=== PATIENT | female | born 1995 | race Caucasian/White ===

== ENCOUNTER 2016-06-26 11:58 | Emergency (ER) | payer MEDICAID ==
[2016-06-26] MEDS ORDERED: NS 0.9% 1000 ML* 2,000 ML IV ONE (12:34)
[2016-06-26] MEDS ORDERED: Ondansetron INJ* 2 MG/ML VIAL IV ONE (12:34)
[2016-06-26] MEDS ORDERED: Ketorolac INJ* 30 MG/ML 1 ML VIAL IV PUSH ONE (12:47)
[2016-06-26 13:11] LABS: Urine Bacteria Absent (Absent); Urine Bilirubin Negative (Negative); Urine Glucose Negative (Negative); Urine Nitrite Negative (Negative)
[2016-06-26 13:13] LABS: Hematocrit 42 % (35-47); Hemoglobin 13.7 g/dl (12.0-16.0); Mean Corpuscular HGB Conc 33 g/dl (31-36); Mean Corpuscular Hemoglobin 27 pg (27-31); Mean Corpuscular Volume 81 fL (80-97); Mean Platelet Volume 8 um3 (7.4-10.4); Red Blood Count 5.15 10^6/ul (4.0-5.4); Red Cell Distribution Width 14 % (10.5-15); White Blood Count 22.7 10^3/ul (3.5-10.8)
[2016-06-26 13:14] LABS: Add Diff/Slide Review? Slide Review Added; Comments Flag Yes
[2016-06-26 13:29] LABS: ALT 16 U/L (7-52); AST 15 U/L (13-39); Albumin 3.8 g/dL (3.2-5.2); Alkaline Phosphatase 75 U/L (34-104); Anion Gap 10 mmol/L (2-11); BUN/Creatinine Ratio 7.7 (8-20); Blood Urea Nitrogen 8 mg/dL (6-24); CO2 Carbon Dioxide 23 mmol/L (22-32); Calcium 9.3 mg/dL (8.6-10.3); Chloride 100 mmol/L (101-111); EGFR Non-African American 66.9 (>60); Globulin 4.2 g/dL (2-4); Glucose 127 mg/dL (70-100); Lipase < 10 U/L (11.0-82.0); Potassium 3.6 mmol/L (3.5-5.0); Sodium 133 mmol/L (133-145)
--- NOTE | 2016-06-26 14:15 | RAD ---
CLINICAL HISTORY: Right flank pain COMPARISON: None TECHNIQUE: Multiple contiguous axial CT scans were obtained of the abdomen and pelvis, without intravenous contrast enhancement. Coronal and sagittal multiplanar reformations are submitted for review. Oral contrast was not administered. FINDINGS: The study is limited by the lack of intravenous contrast. This limits evaluation of the solid organs and vasculature. LUNG BASES: The lung bases are clear. LIVER: The liver is diffusely low in attenuation compared to the spleen. There are no focal hepatic parenchymal masses. BILE DUCTS: There is no intrahepatic or extrahepatic biliary dilatation. GALLBLADDER: The gallbladder is normal, without pericholecystic inflammatory change. PANCREAS: The pancreas is normal, without mass or ductal dilatation. SPLEEN: Normal in size and appearance. UPPER GI TRACT: Evaluation of the gastrointestinal tract is limited by incomplete gastric distention. The upper GI tract is unremarkable. SMALL BOWEL AND MESENTERY: The small bowel is normal in contour, course, and caliber. There is no obstruction or dilatation. COLON: The colon is normal in contour, course, caliber. There is no pericolonic inflammatory change. There is a tubular, vermiform, hollow viscus that is blind ending, and originates from the cecum, consistent with a normal appendix. There is no periappendiceal inflammatory change. This is best seen on images 103 through 117 ADRENALS: Normal bilaterally. KIDNEYS: There is an ill-defined, 1 cm, slightly high attenuation lesion of the midpole of the right kidney measuring 21 Hounsfield units in attenuation. There is mild stranding of the perinephric fat on the right. There is no appreciable hydronephrosis or nephrolithiasis. BLADDER: The bladder is smooth in contour. PELVIC ORGANS: The uterus and adnexa are grossly normal for technique. AORTA: The aorta is normal. IVC: Unremarkable LYMPH NODES: There is no lymphadenopathy by size criteria. ABDOMINAL WALL: There is no evidence for abdominal wall hernia. BONES AND SOFT TISSUES: The bones and soft tissues are unremarkable. OTHER: None IMPRESSION: 1. THERE IS NO HYDRONEPHROSIS OR NEPHROLITHIASIS. 2. THERE IS MILD STRANDING OF THE PERINEPHRIC FAT ON THE RIGHT.. 3. THERE IS AN ILL-DEFINED HIGH ATTENUATION LESION OF THE MIDPOLE OF THE RIGHT KIDNEY WHICH MAY REPRESENT A COMPLEX CYST VERSUS SOLID PARENCHYMAL LESION. RECOMMEND FURTHER EVALUATION WITH CONTRAST-ENHANCED CT OR CONTRAST-ENHANCED MRI OF THE ABDOMEN IN THE NONACUTE SETTING
[2016-06-26] MEDS ORDERED: Ciprofloxacin 400MG IVPREMIX(* 400 MG/200 ML BAG IVPB ONE (14:26)
--- NOTE | 2016-06-26 14:30 | ED ---
GI/ HPI - HPI Summary HPI Summary: 20F presents with left side flank pain for 2 days. She states she was having dysuria on Friday. She admits to urinary frequency. She admits to n/v on Friday that has resolved. Ibuprofen has been managing pain. Denies any diarrhea or constipation. never had this pain before. no fevers. denies any vaginal discharge or hematuria. denies any abdominal pain. - History of Current Complaint Chief Complaint: EDAbdPain Time Seen by Provider: 06/26/16 12:33 Stated Complaint: ABDOMINAL PAIN Pain Intensity: 3 - Allergy/Home Medications Allergies/Adverse Reactions: Allergies Allergy/AdvReac Type Severity Reaction Status Date / Time No Known Allergies Allergy Verified 06/26/16 12:57 Home Medications: Home Medications Norelgestromin-Ethinyl Estradi [Xulane 150-35 Mcg/24Hr] 1 patch TOPICAL Q7D 03/02 [History Confirmed 06/26/16] PMH/Surg Hx/FS Hx/Imm Hx Endocrine/Hematology History: Denies: Hx Anticoagulant Therapy Respiratory History: Denies: Hx Asthma Infectious Disease History: No Infectious Disease History: Denies: Traveled Outside the [place] in Last 30 Days - Family History Known Family History: Negative: Cardiac Disease - Social History Alcohol Use: Occasionally Substance Use Type: Reports: None Smoking Status (MU): Light Every Day Tobacco Smoker Review of Systems Negative: Fever Negative: Chest Pain Negative: Shortness Of Breath Positive: Vomiting - resolved, Nausea - resolved. Negative: Abdominal Pain, Diarrhea Positive: burning, dysuria, flank pain All Other Systems Reviewed And Are Negative: Yes Physical Exam Triage Information Reviewed: Yes Vital Signs On Initial Exam: Initial Vitals Temp Pulse Resp BP Pulse Ox 98.8 F 120 18 141/73 100 06/26/16 12:01 06/26/16 12:01 06/26/16 12:01 06/26/16 12:01 06/26/16 12:01 Vital Signs Reviewed: Yes Appearance: Positive: Well-Appearing Skin: Positive: Warm, Dry Head/Face: Positive: Normal Head/Face Inspection Eyes: Positive: Normal, Conjunctiva Clear Respiratory/Lung Sounds: Positive: Clear to Auscultation, Breath Sounds Present Cardiovascular: Positive: Normal, RRR Abdomen Description: Positive: Nontender, Soft, CVA Tenderness (R) Bowel Sounds: Positive: Present - [place] Coma Scale Coma Scale Total: 15 Diagnostics - Vital Signs Vital Signs Temp Pulse Resp BP Pulse Ox 06/26/16 14:00 109 99 06/26/16 13:00 126 96 06/26/16 12:44 130 99 06/26/16 12:42 154/68 06/26/16 12:01 98.8 F 120 18 141/73 100 - Laboratory Lab Results: Lab Results 06/26/16 06/26/16 06/26/16 Range/Units 12:30 12:57 12:57 WBC 22.7 H (3.5-10.8) 10^3/ul RBC 5.15 (4.0-5.4) 10^6/ul Hgb 13.7 (12.0-16.0) g/dl Hct 42 (35-47) % MCV 81 (80-97) fL MCH 27 (27-31) pg MCHC 33 (31-36) g/dl RDW 14 (10.5-15) % Plt Count 372 (150-450) 10^3/ul MPV 8 (7.4-10.4) um3 Neut % (Auto) 87.7 H (38-83) % Lymph % (Auto) 5.8 L (25-47) % [place] % (Auto) 6.2 (1-9) % Eos % (Auto) 0.1 (0-6) % Baso % (Auto) 0.2 (0-2) % Absolute Neuts (auto) 19.9 H (1.5-7.7) 10^3/ul Absolute Lymphs (auto) 1.3 (1.0-4.8) 10^3/ul Absolute Monos (auto) 1.4 H (0-0.8) 10^3/ul Absolute Eos (auto) 0 (0-0.6) 10^3/ul Absolute Basos (auto) 0 (0-0.2) 10^3/ul Absolute Nucleated RBC 0 10^3/ul Nucleated RBC % 0 Sodium 133 (133-145) mmol/L Potassium 3.6 (3.5-5.0) mmol/L Chloride 100 L (101-111) mmol/L Carbon Dioxide 23 (22-32) mmol/L Anion Gap 10 (2-11) mmol/L BUN 8 (6-24) mg/dL Creatinine 1.04 H (0.51-0.95) mg/dL Est GFR ( Amer) 86.0 (>60) Est GFR (Non-Af Amer) 66.9 (>60) BUN/Creatinine Ratio 7.7 L (8-20) Glucose 127 H (70-100) mg/dL Calcium 9.3 (8.6-10.3) mg/dL Total Bilirubin 0.50 (0.2-1.0) mg/dL AST 15 (13-39) U/L ALT 16 (7-52) U/L Alkaline Phosphatase 75 (34-104) U/L C-React Prot High Sens 88.28 mg/L Total Protein 8.0 (6.4-8.9) g/dL Albumin 3.8 (3.2-5.2) g/dL Globulin 4.2 H (2-4) g/dL Albumin/Globulin Ratio 0.9 L (1-3) Lipase < 10 L (11.0-82.0) U/L Urine Color Yellow Urine Appearance Cloudy Urine pH 6.0 (5-9) Ur Specific [place] 1.013 (1.010-1.030) Urine Protein 1+(30 mg/dl) H (Negative) Urine Ketones Negative (Negative) Urine Blood 2+ H (Negative) Urine Nitrate Negative (Negative) Urine Bilirubin Negative (Negative) Urine Urobilinogen Negative (Negative) Ur Leukocyte Esterase 3+ H (Negative) Urine WBC (Auto) 3+(>20/hpf) H (Absent) Urine RBC (Auto) 1+(3-5/hpf) H (Absent) Ur Squamous Epith Cells Present H (Absent) Urine Bacteria Absent (Absent) Urine Glucose Negative (Negative) Result Diagrams: 06/26/16 12:57 06/26/16 12:57 Lab Statement: Any lab studies that have been ordered have been reviewed, and results considered in the medical decision making process. - CT ab CT Interpretation: Positive (See Comments) - IMPRESSION: 1. THERE IS NO HYDRONEPHROSIS OR NEPHROLITHIASIS. 2. THERE IS MILD STRANDING OF THE PERINEPHRIC FAT ON THE RIGHT.. 3. THERE IS AN ILL-DEFINED HIGH ATTENUATION LESION OF THE MIDPOLE OF THE RIGHT KIDNEY WHICH MAY REPRESENT A COMPLEX CYST VERSUS SOLID PARENCHYMAL LESION. RECOMMEND FURTHER EVALUATION WITH CONTRAST- ENHANCED CT OR CONTRAST-ENHANCED MRI OF THE ABDOMEN IN THE NONACUTE SETTING CT Interpretation Completed By: Radiologist JACQUI Course/Dx - Course Course Of Treatment: 20F presents with dysuria, frequency and right sided flank pain for 2 days. denies any fever. had n/v resolved. on exam abdomen nontender and pos CVA right side. CT no stone, positive fat stranding, and lesion needs follow up outpt, normal appendix urine shows UTI, WBC 22. will treat as pyelo, first dose cipro given IV and will continue outpt. patient understands and agrees with plan - Diagnoses Differential Diagnoses - Female: Pyelonephritis, Urinary Tract Infection, Ureteral Calculi Provider Diagnoses: Pyelonephritis Discharge - Discharge Plan Condition: Stable Disposition: HOME Prescriptions: Ciprofloxacin TAB* [Cipro 500 MG TAB*] 500 mg PO BID #13 tab Ondansetron ODT TAB* [Zofran 4 MG Odt TAB*] 4 mg PO Q6H PRN #5 tab.odt PRN Reason: Nausea Patient Education Materials: Acute Pyelonephritis (ED) Referrals: No Primary Care Phys,NOPCP [Primary Care Provider] - Additional Instructions: Take antibiotic twice a day for 14 days, first dose given in ED Take zofran every 6 hours as need for nausea Drink plenty of water Take Tylenol or ibuprofen every 6 hours as needed for pain Establish care with primary care physician Return to ED if develop fever, severe vomiting, or any new or worsening symptoms
--- NOTE | 2016-06-28 06:39 | ED ---
Progress - Progress Note Progress Note: Pt's urine cx reveals e. coli UTI - pt d/c'd on cipro - awaiting sens - no change at this time. AAlvaro PA-C Course/Dx - Course Course Of Treatment: 20F presents with dysuria, frequency and right sided flank pain for 2 days. denies any fever. had n/v resolved. on exam abdomen nontender and pos CVA right side. CT no stone, positive fat stranding, and lesion needs follow up outpt, normal appendix urine shows UTI, WBC 22. will treat as pyelo, first dose cipro given IV and will continue outpt. patient understands and agrees with plan - Diagnoses Provider Diagnoses: Pyelonephritis
== END 2016-06-26 15:39 | disposition home or self-care (01) ==
LOC: ED 11:58
DX: N12 Tubulo-interstitial nephritis, not specified as acute or chronic (principal); B96.20 Unspecified Escherichia coli [E. coli] as the cause of diseases classified elsewhere; F17.200 Nicotine dependence, unspecified, uncomplicated
CPT/HCPCS: 36415; 74176; 80053; 81003; 81015; 83690; 85025; 86141; 87077; 87086; 87186; 96360; 96374; 96375; 99283; J0744